=== PATIENT | female | born 1985 | race Two or more races ===

== ENCOUNTER 2021-07-26 13:01 | Inpatient (IN) | payer SELFPAY ==
[~2021-07-26] VITALS: Ht 165.1 cm; Wt 70.7 kg
[2021-07-26] MEDS ORDERED: ONDANSETRON PF 4 MG/2 ML VIAL. IVP ONE (16:00)
[2021-07-26] MEDS ORDERED: IV NORMAL SALINE 1000ML BAG 1,000 ML IV ONE (16:00)
[2021-07-26] MEDS ORDERED: IV NORMAL SALINE 1000ML BAG 1,000 ML IV SCH (16:00)
[2021-07-26] MEDS ORDERED: fentaNYL PF VIAL 100 MCG/2 ML VIAL IVP ONE (16:00)
--- NOTE | 2021-07-26 16:01 | PHYS DOC ---
General Adult EDM: Chief Complaint: FLU SYMPTOM HPI: HPI: Patient is a 35 year old female who presents with 1 week of body aches, chills, nausea and fever. She states she is having burning with urination and right back flank pain. Patient rates her pain a 10 out of 10 and states is a dull aching type pain. She denies vomiting, diarrhea, chest pain, shortness of air, dizziness, headache, syncope, cough, nasal congestion, blood in her urine. Patient got the [employer] vaccine. She is a history of asthma. Her son is in the room interpreting for her. Review of Systems: Review of Systems: Constitutional: +fever or +chills. [] Eyes: Denies change in visual acuity. [] HENT: Denies nasal congestion or sore throat. [] Respiratory: Denies cough or shortness of breath. [] Cardiovascular: Denies chest pain or edema. [] GI: Denies abdominal pain, +nausea, denies vomiting, bloody stools or diarrh ea. [] : + dysuria. [] Musculoskeletal: +Right flank back pain or denies joint pain. [] Integument: Denies rash. [] Neurologic: Denies headache, focal weakness or sensory changes. [] Endocrine: Denies polyuria or polydipsia. [] Lymphatic: Denies swollen glands. [] Psychiatric: Denies depression or anxiety. [] Heart Score: C/O Chest Pain: No Physical Exam: PE: Constitutional: Well developed, well nourished, no acute distress, non-toxic appearance. [] HENT: Normocephalic, atraumatic, bilateral external ears normal, oropharynx moist, no oral exudates, nose normal. [] Eyes: PERRLA, EOMI, conjunctiva normal, no discharge. [] Neck: Normal range of motion, no tenderness, supple, no stridor. [] Cardiovascular:Heart rate regular rhythm, no murmur [] Lungs & Thorax: Bilateral breath sounds clear to auscultation [] Abdomen: Bowel sounds normal, soft, no tenderness, no masses, no pulsatile ma sses. [] Skin: Warm, dry, no erythema, no rash. [] Back: No tenderness, right CVA tenderness. [] Extremities: No tenderness, no cyanosis, no clubbing, ROM intact, no edema. [] Neurologic: Alert and oriented X 3, normal motor function, normal sensory function, no focal deficits noted. [] Psychologic: Affect normal, judgement normal, mood normal. [] EKG: EKG: [] Radiology/Procedures: Radiology/Procedures: [] Impression: [address] [address] IMAGING REPORT Signed PATIENT: CHELY HUFFMAN ACCOUNT: [id number] : 1985 LOCATION: ER AGE: 35 SEX: F EXAM STATUS: PRE ER ORD. PHYSICIAN: BINH ARAIZA APRN REASON: FEVER PROCEDURE: PORTABLE CHEST 1V Study: XR CHEST 1V Indication: Fever. Comparison: None. Findings: The cardiomediastinal silhouette and lalitha are within normal limits. Incomplete inspiration. No localized airspace opacity, pleural effusion or pneumothorax. Impression: No convincing radiographic evidence for pneumonia at this time. Electronically signed by: CHADWICK BOSCH MD (07/26/2021 5:03 PM) [facility] DICTATED and SIGNED BY: CHADWICK BOSCH MD DATE: 07/26/211702 [address] [address] IMAGING REPORT Signed PATIENT: CHELY HUFFMAN ACCOUNT: [id number] : 1985 LOCATION: ER AGE: 35 SEX: F EXAM STATUS: REG ER ORD. PHYSICIAN: BINH ARAIZA APRN REASON: severe back pain with urinary symptoms, nausea PROCEDURE: CT ABDOMEN PELVIS WO CONTRAST Study: CT abdomen/pelvis without intravenous contrast Indication: Severe back pain with urinary symptoms. Nausea. Comparison: None. Technique: Helical CT imaging performed of the abdomen and pelvis without the use of intravenous contrast. Sagittal and coronal reformats were obtained. One or more of the following individualized dose reduction techniques were utilized for this examination: 1. Automated exposure control 2. Adjustment of the mA and/or kV according to patient size 3. Use of iterative reconstruction technique. Findings: Inherently limited evaluation without intravenous contrast. Right middle lobe nodule measuring 3.5 mm on image 5 series 2. No dedicated follow-up is needed based on size unless otherwise clinically indicated. Mild bibasilar atelectasis. Unremarkable visualized mediastinal contents. No focal hepatic parenchymal abnormality. Within normal limits gallbladder, biliary tree and pancreas. A tiny focus of increased density at the sourav hepatis, image 55 series 2, not within the common duct. The spleen is within normal limits for size. Unremarkable adrenal glands. Edematous right kidney and edema of the perinephric fat. Mild edema along the right ureter. The right ureter is mildly patulous but there is no hydronephrosis. No stone within the ureter or bladder. Normal bladder wall thickness. Mild bladder distention. No stone or collecting system dilatation on the left. Unremarkable uterus. Intrauterine contraceptive device. No adnexal mass. Small amount of incompletely formed stool within the colon. Gas at the tip of the appendix. The adjacent appendix is mildly dilated at up to 1 cm AP, image 121 series 2. Periappendiceal edema. Nonobstructed small bowel. Unremarkable stomach considering incomplete distention. No lymphadenopathy. No significant volume free fluid. No pneumoperitoneum. Unremarkable body wall soft tissues. No acute or aggressive osseous process. Impression: 1. The right kidney appears edematous and there is perinephric edema on the right as well. No stone in the right ureter which is minimally patulous with some mild surrounding inflammation. Unremarkable bladder with respect to wall thickness. The leading consideration given patient history/symptoms is pyelonephritis. A manifestation of a recently passed stone is also in the differential. 2. Mild prominence of the appendix mainly at its distal aspect and with mild periappendiceal edema. Small amount of gas within the appendiceal lumen at the tip. It is felt more likely that the periappendiceal edema is reactive to right renal pathology than from mild uncomplicated acute appendicitis. Clinical/laboratory findings will be needed to help differentiate. Electronically signed by: CHADWICK BOSCH MD (07/26/2021 6:26 PM) [facility] DICTATED and SIGNED BY: CHADWICK BOSCH MD DATE: 07/26/211816 Course & Med Decision Making: Course & Med Decision Making Pertinent Labs and Imaging studies reviewed. (See chart for details) COVID-19 CRITERIA: The patient was evaluated during the global COVID-19 pandemic, and that diagnosis was suspected/considered upon their initial presentation. Their evaluation, treatment and testing was consistent with current guidelines for patients who present with complaints or symptoms that may be related to COVID-19. See HPI. Alert and oriented x4. Ambulatory steady gait. Skin pink warm and dry. Afebrile at this time. Abdomen is soft and nontender. Right CVA tenderness. Lungs are clear to all stational lobes. Vital signs within normal limits. Patient has a white count. Her creatinine is 1.2. Her urinalysis shows a urinary tract infection with pyelonephritis.. She received Rocephin 1 g IV. She received 2 L of normal saline in the ED along with nausea medication and pain medication. CT abdomen pelvis shows Impression: 1. The right kidney appears edematous and there is perinephric edema on the right as well. No stone in the right ureter which is minimally patulous with some mild surrounding inflammation. Unremarkable bladder with respect to wall thickness. The leading consideration given patient history/symptoms is pyelonephritis. A manifestation of a recently passed stone is also in the differential. 2. Mild prominence of the appendix mainly at its distal aspect and with mild periappendiceal edema. Small amount of gas within the appendiceal lumen at the tip. It is felt more likely that the periappendiceal edema is reactive to right renal pathology than from mild uncomplicated acute appendicitis. Clinical/laboratory findings will be needed to help differentiate. With the correlation of my findings, the patient's symptoms and lab values this is most likely pyelonephritis. She has no right lower quadrant tenderness but she did have right CVA tenderness. I think that since this is been going on for a week that the patient could benefit from IV antibiotics. And observation because they are saying that there is mild periappendiceal edema. Patient to be admitted to the hospitalist. I spoke with Dr. Helton to let him know of CT findings and he states most likely it is not appendicitis. [] Donnie Disclaimer: Donnie Disclaimer: This electronic medical record was generated, in whole or in part, using a voice recognition dictation system. Departure Departure Impression: Primary Impression: Pyelonephritis Disposition: ADMITTED INPATIENT Admitting Physician: TRELL Condition: STABLE BINH ARAIZA APRN Jul 26, 2021 16:01
[2021-07-26 16:29] LABS: BACTERIA,URINE MODERATE /HPF (0-FEW); RBC,URINE 20-40 /HPF (0-2)
[2021-07-26 16:33] LABS: BASO % 0 % (0-3); EOS % 0 % (0-3); HEMATOCRIT 35.2 % (36.0-47.0); HEMOGLOBIN 11.8 g/dL (12.0-15.5); LYMPH # 2.1 x10^3/uL (1.0-4.8); LYMPH % 12 % (24-48); MEAN CORPUSCULAR HEMOGLOBIN 31 pg (25-35); MEAN CORPUSCULAR HGB CONC 34 g/dL (31-37); MEAN CORPUSCULAR VOLUME 92 fL (79-100); MONO # 2.2 x10^3/uL (0.0-1.1); MONO % 13 % (0-9); NEUT # 12.8 x10^3/uL (1.8-7.7); NEUT % 75 % (31-73); PLATELET COUNT 196 x10^3/uL (140-400); RED BLOOD COUNT 3.81 x10^6/uL (3.50-5.40); RED CELL DISTRIBUTION WIDTH 13.1 % (11.5-14.5); WHITE BLOOD COUNT 17.2 x10^3/uL (4.0-11.0)
[2021-07-26 16:41] LABS: CALCIUM 8.4 mg/dL (8.5-10.1); CREATININE 1.2 mg/dL (0.6-1.0); GFR 51.4; POTASSIUM 3.5 mmol/L (3.5-5.1)
[2021-07-26 16:47] LABS: ALBUMIN 2.9 g/dL (3.4-5.0); ALBUMIN/GLOBULIN RATIO 0.8 (1.0-1.7); TOTAL BILIRUBIN 0.5 mg/dL (0.2-1.0); TOTAL PROTEIN 6.6 g/dL (6.4-8.2)
--- NOTE | 2021-07-26 17:05 | RAD ---
Study: XR CHEST 1V Indication: Fever. Comparison: None. Findings: The cardiomediastinal silhouette and lalitha are within normal limits. Incomplete inspiration. No locali zed airspace opacity, pleural effusion or pneumothorax. Impression: No convincing radiographic evidence for pneumonia at this time. Electronically signed by: CHADWICK BOSCH MD (07/26/2021 5:03 PM) [facility]
[2021-07-26] MEDS ORDERED: cefTRIAXone IV Push 1 GM VIAL. IVP ONE (17:15)
[2021-07-26 18:18] LABS: % BANDS 10 % (0-9); % LYMPHS 14 % (24-48); % MONOS 6 % (0-10); % SEGS 70 % (35-66); PLT ESTIMATE ADEQUATE (ADEQUATE)
--- NOTE | 2021-07-26 18:28 | RAD ---
Study: CT abdomen/pelvis without intravenous contrast Indication: Severe back pain with urinary symptoms. Nausea. Comparison: None. Technique: Helical CT imaging performed of the abdomen and pelvis without the use of intravenous cont rast. Sagittal and coronal reformats were obtained. One or more of the following individualized dose reduction techniques were utilized for this examinat ion: 1. Automated exposure control 2. Adjustment of the mA and/or kV according to patient size 3. Use of iterative reconstruction technique. Findings: Inherently limited evaluation without intravenous contrast. Right middle lobe nodule measuring 3.5 mm on image 5 series 2. No dedicated follow-up is needed based on size unless otherwise clinically indicated. Mild bibasilar atelectasis. Unremarkable visualized m ediastinal contents. No focal hepatic parenchymal abnormality. Within normal limits gallbladder, biliary tree and pancreas . A tiny focus of increased density at the sourav hepatis, image 55 series 2, not within the common du ct. The spleen is within normal limits for size. Unremarkable adrenal glands. Edematous right kidney and edema of the perinephric fat. Mild edema along the right ureter. The right ureter is mildly patulous but there is no hydronephrosis. No stone within the ureter or bladder. Nor mal bladder wall thickness. Mild bladder distention. No stone or collecting system dilatation on the left. Unremarkable uterus. Intrauterine contraceptive device. No adnexal mass. Small amount of incompletely formed stool within the colon. Gas at the tip of the appendix. The adjac ent appendix is mildly dilated at up to 1 cm AP, image 121 series 2. Periappendiceal edema. Nonobstru cted small bowel. Unremarkable stomach considering incomplete distention. No lymphadenopathy. No significant volume free fluid. No pneumoperitoneum. Unremarkable body wall sof t tissues. No acute or aggressive osseous process. Impression: 1. The right kidney appears edematous and there is perinephric edema on the right as well. No stone in the right ureter which is minimally patulous with some mild surrounding inflammation. Unremarkable bladder with respect to wall thickness. The leading consideration given patient history/symptoms is pyelonephritis. A manifestation of a recently passed stone is also in the differential. 2. Mild prominence of the appendix mainly at its distal aspect and with mild periappendiceal edema. Small amount of gas within the appendiceal lumen at the tip. It is felt more likely that the periappe ndiceal edema is reactive to right renal pathology than from mild uncomplicated acute appendicitis. C linical/laboratory findings will be needed to help differentiate. Electronically signed by: CHADWICK BOSCH MD (07/26/2021 6:26 PM) [facility]
[2021-07-26] MEDS ORDERED: ONDANSETRON PF 4 MG/2 ML VIAL. IVP PRN (19:15)
[2021-07-26] MEDS ORDERED: ACETAMINOPHEN 325 MG TABLET. PO PRN (19:15)
--- NOTE | 2021-07-26 19:24 | PDOC ---
SURGICAL PROGRESS NOTE DATE: 07/26/21 TIME: 19:23 Subjective Attempted to see pt but out of room Will f/u in AM Favor appendiceal wall enlargement secondary to UTI. Thanks. Vital Signs Vital Signs Date Time Temp Pulse Resp B/P (MAP) Pulse Ox O2 Delivery O2 Flow Rate FiO2 07/26/21 18:53 97.9 82 16 103/63 (76) 100 Room Air 97.9 Labs Laboratory Tests Test 07/26/21 15:45 07/26/21 16:01 07/26/21 16:10 Urine Collection Type Unknown Urine Color (Auto) Light orange Urine Turbidity Hazy Urine pH (Auto) 6.0 (<5.0-8.0) Urine Specific [place] 1.021 (1.000-1.030) Urine Protein (Auto) 100 mg/dL (Negative) Urine Glucose (Auto)(UA) Negative mg/dL (Negative) Urine Ketones (Auto) Negative mg/dL (Negative) Urine Blood (Auto) Large (Negative) Urine Nitrite Positive (Negative) Urine Bilirubin (Auto) Negative (Negative) Urine Urobilinogen (Auto) 3 mg/dL (Normal) Urine Leukocyte Esterase (Auto) Moderate (Negative) Urine RBC 20-40 /HPF (0-2) Urine WBC 11-20 /HPF (0-4) Urine Squamous Epithelial Cells Mod /LPF Urine Bacteria Moderate /HPF (0-FEW) Urine Mucus Slight /LPF Bedside Urine HCG, Qualitative Hcg negative (Negative) White Blood Count 17.2 x10^3/uL (4.0-11.0) Red Blood Count 3.81 x10^6/uL (3.50-5.40) Hemoglobin 11.8 g/dL (12.0-15.5) Hematocrit 35.2 % (36.0-47.0) Mean Corpuscular Volume 92 fL (79-100) Mean Corpuscular Hemoglobin 31 pg (25-35) Mean Corpuscular Hemoglobin Concent 34 g/dL (31-37) Red Cell Distribution Width 13.1 % (11.5-14.5) Platelet Count 196 x10^3/uL (140-400) Neutrophils (%) (Auto) 75 % (31-73) Lymphocytes (%) (Auto) 12 % (24-48) Monocytes (%) (Auto) 13 % (0-9) Eosinophils (%) (Auto) 0 % (0-3) Basophils (%) (Auto) 0 % (0-3) Neutrophils # (Auto) 12.8 x10^3/uL (1.8-7.7) Lymphocytes # (Auto) 2.1 x10^3/uL (1.0-4.8) Monocytes # (Auto) 2.2 x10^3/uL (0.0-1.1) Eosinophils # (Auto) 0.0 x10^3/uL (0.0-0.7) Basophils # (Auto) 0.0 x10^3/uL (0.0-0.2) Segmented Neutrophils % 70 % (35-66) Band Neutrophils % 10 % (0-9) Lymphocytes % 14 % (24-48) Monocytes % 6 % (0-10) Platelet Estimate Adequate (ADEQUATE) Sodium Level 134 mmol/L (136-145) Potassium Level 3.5 mmol/L (3.5-5.1) Chloride Level 98 mmol/L (98-107) Carbon Dioxide Level 24 mmol/L (21-32) Anion Gap 12 (6-14) Blood Urea Nitrogen 15 mg/dL (7-20) Creatinine 1.2 mg/dL (0.6-1.0) Estimated GFR (Cockcroft-Gault) 51.4 BUN/Creatinine Ratio 13 (6-20) Glucose Level 120 mg/dL (70-99) Lactic Acid Level 1.3 mmol/L (0.4-2.0) Calcium Level 8.4 mg/dL (8.5-10.1) Total Bilirubin 0.5 mg/dL (0.2-1.0) Aspartate Amino Transf (AST/SGOT) 13 U/L (15-37) Alanine Aminotransferase (ALT/SGPT) 39 U/L (14-59) Alkaline Phosphatase 111 U/L (46-116) Total Protein 6.6 g/dL (6.4-8.2) Albumin 2.9 g/dL (3.4-5.0) Albumin/Globulin Ratio 0.8 (1.0-1.7) Lipase 45 U/L (73-393) Laboratory Tests Test 07/26/21 15:45 07/26/21 16:01 07/26/21 16:10 Urine Collection Type Unknown Urine Color (Auto) Light orange Urine Turbidity Hazy Urine pH (Auto) 6.0 (<5.0-8.0) Urine Specific [place] 1.021 (1.000-1.030) Urine Protein (Auto) 100 mg/dL (Negative) Urine Glucose (Auto)(UA) Negative mg/dL (Negative) Urine Ketones (Auto) Negative mg/dL (Negative) Urine Blood (Auto) Large (Negative) Urine Nitrite Positive (Negative) Urine Bilirubin (Auto) Negative (Negative) Urine Urobilinogen (Auto) 3 mg/dL (Normal) Urine Leukocyte Esterase (Auto) Moderate (Negative) Urine RBC 20-40 /HPF (0-2) Urine WBC 11-20 /HPF (0-4) Urine Squamous Epithelial Cells Mod /LPF Urine Bacteria Moderate /HPF (0-FEW) Urine Mucus Slight /LPF Bedside Urine HCG, Qualitative Hcg negative (Negative) White Blood Count 17.2 x10^3/uL (4.0-11.0) Red Blood Count 3.81 x10^6/uL (3.50-5.40) Hemoglobin 11.8 g/dL (12.0-15.5) Hematocrit 35.2 % (36.0-47.0) Mean Corpuscular Volume 92 fL (79-100) Mean Corpuscular Hemoglobin 31 pg (25-35) Mean Corpuscular Hemoglobin Concent 34 g/dL (31-37) Red Cell Distribution Width 13.1 % (11.5-14.5) Platelet Count 196 x10^3/uL (140-400) Neutrophils (%) (Auto) 75 % (31-73) Lymphocytes (%) (Auto) 12 % (24-48) Monocytes (%) (Auto) 13 % (0-9) Eosinophils (%) (Auto) 0 % (0-3) Basophils (%) (Auto) 0 % (0-3) Neutrophils # (Auto) 12.8 x10^3/uL (1.8-7.7) Lymphocytes # (Auto) 2.1 x10^3/uL (1.0-4.8) Monocytes # (Auto) 2.2 x10^3/uL (0.0-1.1) Eosinophils # (Auto) 0.0 x10^3/uL (0.0-0.7) Basophils # (Auto) 0.0 x10^3/uL (0.0-0.2) Segmented Neutrophils % 70 % (35-66) Band Neutrophils % 10 % (0-9) Lymphocytes % 14 % (24-48) Monocytes % 6 % (0-10) Platelet Estimate Adequate (ADEQUATE) Sodium Level 134 mmol/L (136-145) Potassium Level 3.5 mmol/L (3.5-5.1) Chloride Level 98 mmol/L (98-107) Carbon Dioxide Level 24 mmol/L (21-32) Anion Gap 12 (6-14) Blood Urea Nitrogen 15 mg/dL (7-20) Creatinine 1.2 mg/dL (0.6-1.0) Estimated GFR (Cockcroft-Gault) 51.4 BUN/Creatinine Ratio 13 (6-20) Glucose Level 120 mg/dL (70-99) Lactic Acid Level 1.3 mmol/L (0.4-2.0) Calcium Level 8.4 mg/dL (8.5-10.1) Total Bilirubin 0.5 mg/dL (0.2-1.0) Aspartate Amino Transf (AST/SGOT) 13 U/L (15-37) Alanine Aminotransferase (ALT/SGPT) 39 U/L (14-59) Alkaline Phosphatase 111 U/L (46-116) Total Protein 6.6 g/dL (6.4-8.2) Albumin 2.9 g/dL (3.4-5.0) Albumin/Globulin Ratio 0.8 (1.0-1.7) Lipase 45 U/L (73-393) Problem List Problems Medical Problems: (1) Pyelonephritis Status: Acute Justicifation of Admission Dx: Justifications for Admission: Justification of Admission Dx: N/A ASHLI PAYNE MD Jul 26, 2021 19:24
[2021-07-26] MEDS ORDERED: PIP/TAZO PER PHARMACY MC PRN (22:15)
[2021-07-26] MEDS: PIPERACILLIN/TAZOBACTAM 3.375 GM in IV NORMAL SALINE 50ML 50 ML IV SCH (23:20)
[2021-07-27] VITALS (8 sets, daily range): BP systolic 101–124; BP diastolic 55–69
[2021-07-27] MEDS: PIPERACILLIN/TAZOBACTAM 3.375 GM in IV NORMAL SALINE 50ML 50 ML IV SCH ×3 (06:03→16:51)
[2021-07-27] MEDS ORDERED: ELECTROLYTE (NON-ICU) PROTOCOL. MC PRN (07:45)
[2021-07-27] MEDS ORDERED: ONDANSETRON PF 4 MG/2 ML VIAL. IVP PRN (07:45)
[2021-07-27] MEDS ORDERED: ACETAMINOPHEN 325 MG TABLET. PO PRN (07:45)
[2021-07-27] MEDS ORDERED: CALCIUM CARBONATE 500 MG TAB.CHEW PO PRN (07:45)
[2021-07-27] MEDS ORDERED: oxyCODONE/APAP 5/325 1 TAB TABLET PO PRN ×2 (07:45)
[2021-07-27] MEDS: SENNOSIDES/DOCUSATE 8.6/50MG TABLET. PO SCH ×2 (08:57→21:04)
--- NOTE | 2021-07-27 09:30 | PDOC2 ---
EKATERINA HA PHARMACY INTAKE TECHNICIAN 07/27/21 0930: CONSULT Date of Consult Date of Consult DATE: 07/27/21 TIME: 09:27 Reason for Consult Reason for Consult: appendix findings on CT Referring Physician Referring Physician: ER Identification/Chief Complaint Chief Complaint fevers Source Source: Chart review, Patient History of Present Illness Reason for Visit: week of body aches, chills, nausea and fever. She states she is having burning with urination and right back flank pain. NO abdominal pain. No nausea or emesis. Currently this morning feels better Past Medical History Past Medical History no pertinent hx Past Surgical History Past Surgical History: No pertinent history Family History Family History: Other (noncontributory ) Social History No ALCOHOL: rare Lives: Alone Current Problem List Problem List Problems Medical Problems: (1) Pyelonephritis Status: Acute Current Medications Current Medications Current Medications Sodium Chloride 1,000 ml @ 1,000 mls/hr Q1H IV Last administered on 07/26/21 16:12; Start 07/26/21 at 16:00; Stop 07/26/21 at 16:59; Status DC Fentanyl Citrate (Fentanyl 2ml Vial) 50 mcg 1X ONCE IVP Last administered on 07/26/21at 16:13; Start 07/26/21 at 16:00; Stop 07/26/21 at 16:08; Status DC Ondansetron HCl (Zofran) 4 mg 1X ONCE IVP Last administered on 07/26/21at 16:13; Start 07/26/21 at 16:00; Stop 07/26/21 at 16:08; Status DC Sodium Chloride 1,000 ml @ 1,000 mls/hr 1X ONCE IV Last administered on 07/26/21at 16:12; Start 07/26/21 at 16:00; Stop 07/26/21 at 16:59; Status DC Ceftriaxone Sodium (Rocephin) 1 gm 1X ONCE IVP Last administered on 07/26/21at 17:36; Start 07/26/21 at 17:15; Stop 07/26/21 at 17:16; Status DC Ondansetron HCl (Zofran) 4 mg PRN Q8HRS PRN IVP NAUSEA/VOMITING; Start 07/26/21 at 19:15; Stop 07/27/21 at 07:42; Status DC Acetaminophen (Tylenol) 650 mg PRN Q4HRS PRN PO FEVER > 100.3'F Last administered on 07/26/21at 20:01; Start 07/26/21 at 19:15; Stop 07/27/21 at 19:14 Piperacillin Sod/ Tazobactam Sod (Zosyn Per Pharmacy) 1 each PRN DAILY PRN MC SEE COMMENTS; Start 07/26/21 at 22:15 Piperacillin Sod/ Tazobactam Sod 3.375 gm/Sodium Chloride 50 ml @ 100 mls/hr Q6HRS IV Last administered on 07/27/21at 06:03; Start 07/27/21 at 00:00 Ondansetron HCl (Zofran) 4 mg PRN Q6HRS PRN IVP NAUSEA/VOMITING; Start 07/27/21 at 07:45 Calcium Carbonate/ Glycine (Tums) 500 mg PRN Q3HRS PRN PO UPSET STOMACH; Start 07/27/21 at 07:45 Info (Non-Icu Electrolyte Protocol) 1 ea PRN DAILY PRN MC SEE COMMENTS; Start 07/27/21 at 07:45 Oxycodone/ Acetaminophen (Percocet 5/325) 1 tab PRN Q4HRS PRN PO MILD PAIN, 1ST CHOICE; Start 07/27/21 at 07:45 Oxycodone/ Acetaminophen (Percocet 5/325) 2 tab PRN Q4HRS PRN PO MODERATE PAIN, SEVERE PAIN; Start 07/27/21 at 07:45 Acetaminophen (Tylenol) 650 mg PRN Q6HRS PRN PO Headaches, Temp > 101.5F Last administered on 07/27/21at 08:57; Start 07/27/21 at 07:45 Senna/Docusate Sodium (Senna Plus) 1 tab BID PO Last administered on 07/27/21at 08:57; Start 07/27/21 at 09:00 Allergies Allergies: Coded Allergies: No Known Drug Allergies (Unverified , 07/26/21) ROS General: YES: Chills, Fatigue PSYCHOLOGICAL ROS: No: Anxiety, Depression Eyes: No Blurry vision, No Double vision Hematological and Lymphatic: No: Bleeding Problems, Blood Clots Respiratory: No: Cough, Shortness of breath Cardiovascular: No Chest Pain, No Palpitations Gastrointestinal: Yes Other (see HPI) Genitourinary: YES Other (See HPI) Musculoskeletal: No Joint Pain, No Muscle Pain Neurological: No Impaired Coord/balance, No Numbness/Tingling Skin: No Pruritus, No Rash Physical Exam General: Alert, Oriented X3, Cooperative HEENT: Atraumatic, PERRLA Lungs: Clear to auscultation, Normal air movement Heart: Regular rate, Normal S1, Normal S2 Abdomen: Soft, No tenderness, No hepatosplenomegaly Extremities: No clubbing, No cyanosis Skin: No rashes, No breakdown Neuro: Normal gait, Normal speech Psych/Mental Status: Mental status NL, Mood NL MUSCULOSKELETAL: No deformity, No swelling Vitals VITALS Vital Signs Date Time Temp Pulse Resp B/P (MAP) Pulse Ox O2 Delivery O2 Flow Rate FiO2 07/27/21 08:06 99.6 96 16 107/55 (72) 96 Room Air 99.6 Labs Labs Laboratory Tests Test 07/26/21 15:45 07/26/21 16:01 07/26/21 16:10 Urine Collection Type Unknown Urine Color (Auto) Light orange Urine Turbidity Hazy Urine pH (Auto) 6.0 (<5.0-8.0) Urine Specific [place] 1.021 (1.000-1.030) Urine Protein (Auto) 100 mg/dL (Negative) Urine Glucose (Auto)(UA) Negative mg/dL (Negative) Urine Ketones (Auto) Negative mg/dL (Negative) Urine Blood (Auto) Large (Negative) Urine Nitrite Positive (Negative) Urine Bilirubin (Auto) Negative (Negative) Urine Urobilinogen (Auto) 3 mg/dL (Normal) Urine Leukocyte Esterase (Auto) Moderate (Negative) Urine RBC 20-40 /HPF (0-2) Urine WBC 11-20 /HPF (0-4) Urine Squamous Epithelial Cells Mod /LPF Urine Bacteria Moderate /HPF (0-FEW) Urine Mucus Slight /LPF Bedside Urine HCG, Qualitative Hcg negative (Negative) White Blood Count 17.2 x10^3/uL (4.0-11.0) Red Blood Count 3.81 x10^6/uL (3.50-5.40) Hemoglobin 11.8 g/dL (12.0-15.5) Hematocrit 35.2 % (36.0-47.0) Mean Corpuscular Volume 92 fL (79-100) Mean Corpuscular Hemoglobin 31 pg (25-35) Mean Corpuscular Hemoglobin Concent 34 g/dL (31-37) Red Cell Distribution Width 13.1 % (11.5-14.5) Platelet Count 196 x10^3/uL (140-400) Neutrophils (%) (Auto) 75 % (31-73) Lymphocytes (%) (Auto) 12 % (24-48) Monocytes (%) (Auto) 13 % (0-9) Eosinophils (%) (Auto) 0 % (0-3) Basophils (%) (Auto) 0 % (0-3) Neutrophils # (Auto) 12.8 x10^3/uL (1.8-7.7) Lymphocytes # (Auto) 2.1 x10^3/uL (1.0-4.8) Monocytes # (Auto) 2.2 x10^3/uL (0.0-1.1) Eosinophils # (Auto) 0.0 x10^3/uL (0.0-0.7) Basophils # (Auto) 0.0 x10^3/uL (0.0-0.2) Segmented Neutrophils % 70 % (35-66) Band Neutrophils % 10 % (0-9) Lymphocytes % 14 % (24-48) Monocytes % 6 % (0-10) Platelet Estimate Adequate (ADEQUATE) Sodium Level 134 mmol/L (136-145) Potassium Level 3.5 mmol/L (3.5-5.1) Chloride Level 98 mmol/L (98-107) Carbon Dioxide Level 24 mmol/L (21-32) Anion Gap 12 (6-14) Blood Urea Nitrogen 15 mg/dL (7-20) Creatinine 1.2 mg/dL (0.6-1.0) Estimated GFR (Cockcroft-Gault) 51.4 BUN/Creatinine Ratio 13 (6-20) Glucose Level 120 mg/dL (70-99) Lactic Acid Level 1.3 mmol/L (0.4-2.0) Calcium Level 8.4 mg/dL (8.5-10.1) Total Bilirubin 0.5 mg/dL (0.2-1.0) Aspartate Amino Transf (AST/SGOT) 13 U/L (15-37) Alanine Aminotransferase (ALT/SGPT) 39 U/L (14-59) Alkaline Phosphatase 111 U/L (46-116) Total Protein 6.6 g/dL (6.4-8.2) Albumin 2.9 g/dL (3.4-5.0) Albumin/Globulin Ratio 0.8 (1.0-1.7) Lipase 45 U/L (73-393) Laboratory Tests Test 07/26/21 15:45 07/26/21 16:01 07/26/21 16:10 Urine Collection Type Unknown Urine Color (Auto) Light orange Urine Turbidity Hazy Urine pH (Auto) 6.0 (<5.0-8.0) Urine Specific [place] 1.021 (1.000-1.030) Urine Protein (Auto) 100 mg/dL (Negative) Urine Glucose (Auto)(UA) Negative mg/dL (Negative) Urine Ketones (Auto) Negative mg/dL (Negative) Urine Blood (Auto) Large (Negative) Urine Nitrite Positive (Negative) Urine Bilirubin (Auto) Negative (Negative) Urine Urobilinogen (Auto) 3 mg/dL (Normal) Urine Leukocyte Esterase (Auto) Moderate (Negative) Urine RBC 20-40 /HPF (0-2) Urine WBC 11-20 /HPF (0-4) Urine Squamous Epithelial Cells Mod /LPF Urine Bacteria Moderate /HPF (0-FEW) Urine Mucus Slight /LPF Bedside Urine HCG, Qualitative Hcg negative (Negative) White Blood Count 17.2 x10^3/uL (4.0-11.0) Red Blood Count 3.81 x10^6/uL (3.50-5.40) Hemoglobin 11.8 g/dL (12.0-15.5) Hematocrit 35.2 % (36.0-47.0) Mean Corpuscular Volume 92 fL (79-100) Mean Corpuscular Hemoglobin 31 pg (25-35) Mean Corpuscular Hemoglobin Concent 34 g/dL (31-37) Red Cell Distribution Width 13.1 % (11.5-14.5) Platelet Count 196 x10^3/uL (140-400) Neutrophils (%) (Auto) 75 % (31-73) Lymphocytes (%) (Auto) 12 % (24-48) Monocytes (%) (Auto) 13 % (0-9) Eosinophils (%) (Auto) 0 % (0-3) Basophils (%) (Auto) 0 % (0-3) Neutrophils # (Auto) 12.8 x10^3/uL (1.8-7.7) Lymphocytes # (Auto) 2.1 x10^3/uL (1.0-4.8) Monocytes # (Auto) 2.2 x10^3/uL (0.0-1.1) Eosinophils # (Auto) 0.0 x10^3/uL (0.0-0.7) Basophils # (Auto) 0.0 x10^3/uL (0.0-0.2) Segmented Neutrophils % 70 % (35-66) Band Neutrophils % 10 % (0-9) Lymphocytes % 14 % (24-48) Monocytes % 6 % (0-10) Platelet Estimate Adequate (ADEQUATE) Sodium Level 134 mmol/L (136-145) Potassium Level 3.5 mmol/L (3.5-5.1) Chloride Level 98 mmol/L (98-107) Carbon Dioxide Level 24 mmol/L (21-32) Anion Gap 12 (6-14) Blood Urea Nitrogen 15 mg/dL (7-20) Creatinine 1.2 mg/dL (0.6-1.0) Estimated GFR (Cockcroft-Gault) 51.4 BUN/Creatinine Ratio 13 (6-20) Glucose Level 120 mg/dL (70-99) Lactic Acid Level 1.3 mmol/L (0.4-2.0) Calcium Level 8.4 mg/dL (8.5-10.1) Total Bilirubin 0.5 mg/dL (0.2-1.0) Aspartate Amino Transf (AST/SGOT) 13 U/L (15-37) Alanine Aminotransferase (ALT/SGPT) 39 U/L (14-59) Alkaline Phosphatase 111 U/L (46-116) Total Protein 6.6 g/dL (6.4-8.2) Albumin 2.9 g/dL (3.4-5.0) Albumin/Globulin Ratio 0.8 (1.0-1.7) Lipase 45 U/L (73-393) Assessment/Plan Assessment/Plan pyelonphritis suspect appendix findings are secondary to pyelo abx no surgical plans ASHLI PAYNE MD 07/27/21 9336: CONSULT Assessment/Plan Assessment/Plan Pt seen and examined. Agree with Latia's note Pt denies abd pain and feels better abd soft, NTTP agree with abx and unlikely to have appendicitis. Thanks for consult! EKATERINA HA PHARMACY INTAKE TECHNICIAN Jul 27, 2021 09:30 ASHLI PAYNE MD Jul 27, 2021 15:50
--- NOTE | 2021-07-27 16:49 | PDOC1 ---
History and Physical Date of Admission Date of Admission DATE: 07/27/21 TIME: 16:44 Source Source: Chart review, Patient Past Medical History Cardiovascular: No pertinent hx Pulmonary: No pertinent hx Psych: No pertinent hx ENT: No pertinent hx Past Surgical History Past Surgical History: No pertinent history Family History Family History: No Significant, Other (noncontributory ) Social History Smoke: No ALCOHOL: rare Current Problem List Problem List Problems Medical Problems: (1) Pyelonephritis Status: Acute Current Medications Current Medications Current Medications Sodium Chloride 1,000 ml @ 1,000 mls/hr Q1H IV Last administered on 07/26/21 16:12; Start 07/26/21 at 16:00; Stop 07/26/21 at 16:59; Status DC Fentanyl Citrate (Fentanyl 2ml Vial) 50 mcg 1X ONCE IVP Last administered on 07/26/21at 16:13; Start 07/26/21 at 16:00; Stop 07/26/21 at 16:08; Status DC Ondansetron HCl (Zofran) 4 mg 1X ONCE IVP Last administered on 07/26/21at 16:13; Start 07/26/21 at 16:00; Stop 07/26/21 at 16:08; Status DC Sodium Chloride 1,000 ml @ 1,000 mls/hr 1X ONCE IV Last administered on 07/26/21at 16:12; Start 07/26/21 at 16:00; Stop 07/26/21 at 16:59; Status DC Ceftriaxone Sodium (Rocephin) 1 gm 1X ONCE IVP Last administered on 07/26/21at 17:36; Start 07/26/21 at 17:15; Stop 07/26/21 at 17:16; Status DC Ondansetron HCl (Zofran) 4 mg PRN Q8HRS PRN IVP NAUSEA/VOMITING; Start 07/26/21 at 19:15; Stop 07/27/21 at 07:42; Status DC Acetaminophen (Tylenol) 650 mg PRN Q4HRS PRN PO FEVER > 100.3'F Last administered on 07/26/21at 20:01; Start 07/26/21 at 19:15; Stop 07/27/21 at 19:14 Piperacillin Sod/ Tazobactam Sod (Zosyn Per Pharmacy) 1 each PRN DAILY PRN MC SEE COMMENTS; Start 07/26/21 at 22:15 Piperacillin Sod/ Tazobactam Sod 3.375 gm/Sodium Chloride 50 ml @ 100 mls/hr Q6HRS IV Last administered on 07/27/21at 11:11; Start 07/27/21 at 00:00 Ondansetron HCl (Zofran) 4 mg PRN Q6HRS PRN IVP NAUSEA/VOMITING; Start 07/27/21 at 07:45 Calcium Carbonate/ Glycine (Tums) 500 mg PRN Q3HRS PRN PO UPSET STOMACH; Start 07/27/21 at 07:45 Info (Non-Icu Electrolyte Protocol) 1 ea PRN DAILY PRN MC SEE COMMENTS; Start 07/27/21 at 07:45 Oxycodone/ Acetaminophen (Percocet 5/325) 1 tab PRN Q4HRS PRN PO MILD PAIN, 1ST CHOICE; Start 07/27/21 at 07:45 Oxycodone/ Acetaminophen (Percocet 5/325) 2 tab PRN Q4HRS PRN PO MODERATE PAIN, SEVERE PAIN; Start 07/27/21 at 07:45 Acetaminophen (Tylenol) 650 mg PRN Q6HRS PRN PO Headaches, Temp > 101.5F Last administered on 07/27/21at 08:57; Start 07/27/21 at 07:45 Senna/Docusate Sodium (Senna Plus) 1 tab BID PO Last administered on 07/27/21at 08:57; Start 07/27/21 at 09:00 Lactobacillus Rhamnosus (Culturelle) 1 cap BID PO ; Start 07/27/21 at 21:00 Allergies Allergies: Coded Allergies: No Known Drug Allergies (Unverified , 07/26/21) ROS General: No: Chills, Night Sweats, Fatigue, Malaise, Appetite, Other PSYCHOLOGICAL ROS: No: Anxiety, Behavioral Disorder, Concentration difficultie, Decreased libido, Depression, Disorientation, Hallucinations, Hostility, Irritablity, Memory difficulties, Mood Swings, Obsessive thoughts, Physical abuse, Sexual abuse, Sleep disturbances, Suicidal ideation, Other Eyes: No Blurry vision, No Decreased vision, No Double vision, No Dry eyes, No Excessive tearing, No Eye Pain, No Itchy Eyes, No Loss of vision, No Photophobia, No Scotomata, No Uses contacts, No Uses glasses, No Other HEENT: No: Heacaches, Visual Changes, Hearing change, Nasal congestion, Nasal discharge, Oral lesions, Sinus pain, Sore Throat, Epistaxis, Sneezing, Snoring, Tinnitus, Vertigo, Vocal changes, Other Respiratory: No: Cough, Hemoptysis, Orthopnea, Pleuritic Pain, Shortness of breath, SOB with excertion, Sputum Changes, Stridor, Tachypnea, Wheezing, Other Cardiovascular: No Chest Pain, No Palpitations, No Orthopnea, No Paroxysmal Noc. Dyspnea, No Edema, No Lt Headedness, No Other Gastrointestinal: No Nausea, No Vomiting, No Abdominal Pain, No Diarrhea, No Constipation, No Melena, No Hematochezia, No Other Genitourinary: No Dysuria, No Frequency, No Incontinence, No Hematuria, No Retention, No Discharge, No Urgency, No Pain, No Flank Pain, No Other, No , No , No , No , No , No , No Musculoskeletal: No Gait Disturbance, No Joint Pain, No Joint Stiffness, No Joint Swelling, No Muscle Pain, No Muscular Weakness, No Pain In:, No Swelling In:, No Other Neurological: No Behavorial Changes, No Bowel/Bladder ControlChng, No Confusion, No Dizziness, No Gait Disturbance, No Headaches, No Impaired Coord/balance, No Memory Loss, No Numbness/Tingling, No Seizures, No Speech Problems, No Tremors, No Visual Changes, No Weakness, No Other Skin: No Dry Skin, No Eczema, No Hair Changes, No Lumps, No Mole Changes, No Mottling, No Nail Changes, No Pruritus, No Rash, No Skin Lesion Changes, No Other, No Acne Physical Exam General: Alert, Cooperative, No acute distress HEENT: Atraumatic, PERRLA Lungs: Clear to auscultation Heart: S1S2, no murmurs Abdomen: Normal bowel sounds, Soft Extremities: No edema Skin: No breakdown, No significant lesion Neuro: Normal gait, Normal tone Psych/Mental Status: Mood NL Vitals Vitals Vital Signs Date Time Temp Pulse Resp B/P (MAP) Pulse Ox O2 Delivery O2 Flow Rate FiO2 07/27/21 15:00 98.2 66 18 101/63 (76) 99 Room Air 98.2 Labs Labs Laboratory Tests Test 07/26/21 15:45 07/26/21 16:01 07/26/21 16:10 Urine Collection Type Unknown Urine Color (Auto) Light orange Urine Turbidity Hazy Urine pH (Auto) 6.0 (<5.0-8.0) Urine Specific [place] 1.021 (1.000-1.030) Urine Protein (Auto) 100 mg/dL (Negative) Urine Glucose (Auto)(UA) Negative mg/dL (Negative) Urine Ketones (Auto) Negative mg/dL (Negative) Urine Blood (Auto) Large (Negative) Urine Nitrite Positive (Negative) Urine Bilirubin (Auto) Negative (Negative) Urine Urobilinogen (Auto) 3 mg/dL (Normal) Urine Leukocyte Esterase (Auto) Moderate (Negative) Urine RBC 20-40 /HPF (0-2) Urine WBC 11-20 /HPF (0-4) Urine Squamous Epithelial Cells Mod /LPF Urine Bacteria Moderate /HPF (0-FEW) Urine Mucus Slight /LPF Bedside Urine HCG, Qualitative Hcg negative (Negative) White Blood Count 17.2 x10^3/uL (4.0-11.0) Red Blood Count 3.81 x10^6/uL (3.50-5.40) Hemoglobin 11.8 g/dL (12.0-15.5) Hematocrit 35.2 % (36.0-47.0) Mean Corpuscular Volume 92 fL (79-100) Mean Corpuscular Hemoglobin 31 pg (25-35) Mean Corpuscular Hemoglobin Concent 34 g/dL (31-37) Red Cell Distribution Width 13.1 % (11.5-14.5) Platelet Count 196 x10^3/uL (140-400) Neutrophils (%) (Auto) 75 % (31-73) Lymphocytes (%) (Auto) 12 % (24-48) Monocytes (%) (Auto) 13 % (0-9) Eosinophils (%) (Auto) 0 % (0-3) Basophils (%) (Auto) 0 % (0-3) Neutrophils # (Auto) 12.8 x10^3/uL (1.8-7.7) Lymphocytes # (Auto) 2.1 x10^3/uL (1.0-4.8) Monocytes # (Auto) 2.2 x10^3/uL (0.0-1.1) Eosinophils # (Auto) 0.0 x10^3/uL (0.0-0.7) Basophils # (Auto) 0.0 x10^3/uL (0.0-0.2) Segmented Neutrophils % 70 % (35-66) Band Neutrophils % 10 % (0-9) Lymphocytes % 14 % (24-48) Monocytes % 6 % (0-10) Platelet Estimate Adequate (ADEQUATE) Sodium Level 134 mmol/L (136-145) Potassium Level 3.5 mmol/L (3.5-5.1) Chloride Level 98 mmol/L (98-107) Carbon Dioxide Level 24 mmol/L (21-32) Anion Gap 12 (6-14) Blood Urea Nitrogen 15 mg/dL (7-20) Creatinine 1.2 mg/dL (0.6-1.0) Estimated GFR (Cockcroft-Gault) 51.4 BUN/Creatinine Ratio 13 (6-20) Glucose Level 120 mg/dL (70-99) Lactic Acid Level 1.3 mmol/L (0.4-2.0) Calcium Level 8.4 mg/dL (8.5-10.1) Total Bilirubin 0.5 mg/dL (0.2-1.0) Aspartate Amino Transf (AST/SGOT) 13 U/L (15-37) Alanine Aminotransferase (ALT/SGPT) 39 U/L (14-59) Alkaline Phosphatase 111 U/L (46-116) Total Protein 6.6 g/dL (6.4-8.2) Albumin 2.9 g/dL (3.4-5.0) Albumin/Globulin Ratio 0.8 (1.0-1.7) Lipase 45 U/L (73-393) VTE Prophylaxis Ordered VTE Prophylaxis Devices: No VTE Pharmacological Prophylaxi: Yes Assessment/Plan Assessment/Plan sepsis pyelonephritis, IV fluid, zosyn, better Justifications for Admission Other Justification LAWANDA GUIDRY MD Jul 27, 2021 16:49
[2021-07-27] MEDS: LACTOBACILLUS RHAMNOSUS GG 1 CAPSULE. PO SCH (21:03)
[2021-07-28] MEDS: PIPERACILLIN/TAZOBACTAM 3.375 GM in IV NORMAL SALINE 50ML 50 ML IV SCH ×2 (00:03→06:25)
[2021-07-28 07:11] VITALS: BP 94/61
[2021-07-28] MEDS: LACTOBACILLUS RHAMNOSUS GG 1 CAPSULE. PO SCH (10:09)
[2021-07-28] MEDS: SENNOSIDES/DOCUSATE 8.6/50MG TABLET. PO SCH (10:10)
[2021-07-28 11:25] VITALS: BP 105/65
[2021-07-28] MEDS ORDERED: AMOX1TAB10 PO (12:05)
[2021-07-28] MEDS ORDERED: HYDR-2761 PO (12:06)
--- NOTE | 2021-07-28 13:06 | NUR ---
pt was discharged home with self care, two scripts were sent to the [facility] on and . 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 Stew Parikh RN
--- NOTE | 2021-07-28 14:38 | DS ---
DATE OF DISCHARGE: 07/28/2021 ADMISSION DIAGNOSES: Pyelonephritis, sepsis. DISCHARGE DIAGNOSES: Resolving pyelonephritis, resolving sepsis. HOSPITAL COURSE: The patient is a pleasant, middle-aged female who presented with pyelonephritis. We gave her IV antibiotics and fluids. Today, I saw and examined her. She was doing well, wanted to go home. We discharged to home. DISPOSITION: Home. ACTIVITY: As tolerated. DIET: Low sodium. DISCHARGE MEDICATIONS: Please see the MRAD. Augmentin 500 p.o. b.i.d. for 1 week and p.r.n. hydrocodone. TOTAL TIME: [address]: Albino TID: [id number]
== END 2021-07-28 13:08 | disposition home or self-care (01) | DRG 872 ==
LOC: ER 13:01 → EDBD 13:01 → ED HOLD 19:00 → 2 NORTH 20:29
PROVIDERS: ADMIT Student in an Organized Health Care Education/Training Program; ATTEND Student in an Organized Health Care Education/Training Program
DX: A41.9 Sepsis, unspecified organism (principal); N12 Tubulo-interstitial nephritis, not specified as acute or chronic; K35.80 Unspecified acute appendicitis; J45.909 Unspecified asthma, uncomplicated
CPT/HCPCS: 36415; 71045; 74176; 80053; 81001; 81025; 83605; 83690; 85007; 85025; 87040; 87077; 87086; 87186; 87491; 87591; 96361; 96374; 96375; J0696; J2405; J2543; J3010; J7030; 99285-25; G0378